=== PATIENT | male | born 1960 ===

== ENCOUNTER → 2016-07-15 08:46 | Day surgery (SDC) | payer OTHER ==
[~2016-07-15 08:46] MED LIST: Buffered Lidocaine 1% SYR 3ML* 3 ML/SYR SYRINGE ONE; Bupivacaine 0.5% W/EPI SDV* 30 ML VIAL ONE; Dexamethasone IV* 4 MG/ML 1 ML (4 MG) ONE; EPHEDrine (Pressors)* 50 MG/ML VIAL ONE; Famotidine IV* 10 MG/ML 2 ML (20 mg) IV ONE; Famotidine IV* 10 MG/ML 2 ML (20 mg) ONE; Flumazenil* 0.1 MG/ML 5 ML MDV ONE; KETAMINE HCL* 50 MG/ML 10 ML VIAL ONE; Ketorolac INJ* 30 MG/ML 1 ML VIAL ONE; Lidocaine 1% INJ* 10 MG/ML 30 ML SDV ONE; Lidocaine 2% PF* 10 ML AMP ONE; Midazolam* 1 MG/ML 5 ML VIAL (5 MG) ONE; Morphine INJ* 2 MG/ML 1 ML CARPUJECT IV PRN; Ondansetron INJ* 2 MG/ML VIAL ONE; PROCHLORPERAZINE INJ 5 MG/ML 2 ML VIAL IV PRN; Propofol* 10 MG/ML 20 ML BTL IV PUSH ONE; ceFAZolin 2 GM PREMIX (*) 2 GM/50 ML BAG IVPB ONE; fentaNYL* 50 MCG/ML 2 ML VIAL (100 MCG VIAL) ONE; oxyCODONE/Acetamin 5/325 MG* TAB ONE; oxyCODONE/Acetamin 5/325 MG* TAB PO PRN
[2016-07-15] MEDS: Buffered Lidocaine 1% SYR 3ML* 3 ML/SYR SYRINGE INTRADERM ONE ×2 (09:30→09:40)
--- NOTE | 2016-07-15 12:57 | PN ---
Progress Note - Progress Note Note: Brief Operative Note: Preop Dx: right inguinal hernia Postop Dx: same, indirect Procedure: open repair RIH w/ mesh Anesthesia: local/MAC Surgeon: Agustin Asst: PENG Waite EBL: negl fluids: 1300 ml RL specimen: none Findings: dictated
[2016-07-15] MEDS: fentaNYL* 50 MCG/ML 2 ML VIAL (100 MCG VIAL) IV PRN ×4 (13:48→14:54)
[2016-07-15 17:27] VITALS: BP 100/68
--- NOTE | 2016-07-16 02:41 | OP ---
DATE OF OPERATION: 07/15/16 [facility] DATE OF : 60 SURGEON: Glenn Velez MD [employer] RE[employer]ENTATIVE: PENG Richards ANESTHESIOLOGIST: Dr. Belle. ANESTHESIA: General with local. PRE-OP DIAGNOSIS: Large right inguinal scrotal hernia. POST-OP DIAGNOSIS: Right indirect inguinal scrotal hernia. OPERATIVE PROCEDURE: Open repair with mesh of a right indirect inguinal hernia. ESTIMATED BLOOD LOSS: Minimal. IV FLUIDS: 1.4 L of crystalloid. SPECIMENS: None. COMPLICATIONS: None. DRAINS: None. WOUND CLASSIFICATION: I. FINDINGS: The patient had a very large and necrotic indirect inguinal hernia with a large sac extending down into the scrotum. BRIEF HISTORY: Mr. Mitul Cote is a 55-year-old gentleman who has had a long- standing right inguinal hernia, which, upon standing, extends down into the right scrotum and is quite large. On physical exam, however, in the supine position, it is reducible and he tolerates reduction well. He is now to undergo an elective repair. DESCRIPTION OF PROCEDURE: Written informed consent was obtained. The right groin was marked with indelible ink and preoperative antibiotics were administered. The patient was taken to the operating room, placed in the supine position. Sequential compression devices and warming blanket were applied. General anesthesia was administered. The right groin, lower abdomen, and all the genitalia were prepped and draped in the usual sterile fashion. Time-out verification was completed. Initially, 0.25% Marcaine mixed with 1% lidocaine was infiltrated in the right groin. An oblique incision was made several fingerbreadths above the crease and carried down through the Johnnie's fascia. The external oblique aponeurosis was identified and opened in the direction of its fibers. It was obvious that there was a rather large hernia protruding from the internal ring and the spermatic cord and the hernia was quite scared. Obviously , this has been a long chronic process. With care, I was able to encircle the spermatic cord and apparent hernia with a 1- 1/4-inch [place] drain. We were able to dissect the cord structures off the direct space. There appeared to be no indirect hernia. Next, carefully dissecting through quite a bit of large amount of scar tissue, we were able to identify very thick walled chronic large hernia sac, which extended down into the scrotum. With care, both using sharp and blunt dissection, we were able to separate this from the cord structures and the vas deferens was identified and care was taken to prevent injury throughout the entire case. At one point, I did enter the sac intentionally and we were able to identify this as the sac which extended into the peritoneum as well as identifying its boundaries within the upper portion of the scrotum. As we were able to put several fingers inside the sac and proceeding dissection this way and eventually was able to dissect this free up into the internal ring, which obviously was quite patulous. Once we had freed up the indirect space, the peritoneal rent was then closed with a running locked 3-0 Polysorb suture. The hernia sac reduced nicely and I was able to plicate the internal ring with several 3-0 Polysorb sutures in anticipation of the mesh placement. The direct space showed no sign of a hernia. Next, the [employer] polyester mesh was then placed and sutured to the pubic tubercle medially, the conjoint tendons superiorly, and the musculature laterally with interrupted 0 Polysorb suture. The mesh was secured to the inguinal ligament inferiorly with a running 0 Polysorb suture. The mesh reconstructed the internal ring nicely and it appeared to be under no tension and covered the inguinal floor nicely. Hemostasis was assured. Additional Marcaine was infiltrated. The external oblique aponeurosis was closed with a running 3-0 Polysorb suture. Johnnie's fascia was closed with interrupted 3-0 Polysorb suture. The skin was approximated with subcuticular 4-0 Polysorb suture. Steri-Strips and sterile dressings were applied. At the completion of the case, I was able to examine the genitalia and both testicles were in the normal position in the scrotum and no other acute abnormality noted. [id number] #: [id number] [facility]
== END | disposition home or self-care (01) ==
LOC: OR 08:46
PROVIDERS: ATTEND Surgery
DX: K40.90 Unilateral inguinal hernia, without obstruction or gangrene, not specified as recurrent (principal); F17.200 Nicotine dependence, unspecified, uncomplicated; J45.909 Unspecified asthma, uncomplicated
CPT/HCPCS: A9270-GY; C1781; J0690; J1100; J1885; J2001; J2250; J2405; J2704; J3010